=== PATIENT | female | born 1960 | race Caucasian/White ===

== ENCOUNTER 2016-11-12 20:17 | Emergency (ER) | payer OTHER ==
--- NOTE | 2016-11-12 21:17 | DIAGNOSTIC IMAGING REPORT ---
PROCEDURE: XR CHEST 2 VIEW INDICATION: CHEST PAIN TECHNIQUE: PA and lateral views. COMPARISON: None. FINDINGS: Allowing for overlying wires and electrodes, and suboptimal inspiration, lungs are clear. Heart and mediastinum are normal. Thorax is normal. IMPRESSION: 1. Allowing for suboptimal inspiration, negative chest.
--- NOTE | 2016-11-12 21:34 | ED NURSING NOTES ---
Clinical Report - Nurses [facility] [address] [place] [address] 11/12/2016 20:17 Patient: DONY GUAMAN TRIAGE Triage time 20:22. Acuity: LEVEL 3. Chief Complaint: CHEST PAIN and ("stabbing pain" and left arm "dull throbbing pain"). Alert. No acute distress. SEPSIS SCREEN: Sepsis Screen. Negative (no infection suspected/documented). CHOCO COMA SCORE: Choco Coma Scale: 15- eyes open spontaneously (4); best verbal response- oriented x 4 (5); best motor response- obeys commands (6). --20:36 Licha Hernandez R.N. 20:22 11/12/16. BP: 151/99. HR: 74. RR: 20. O2 saturation: 100%. Temp: 98.1 F. Pain level now 3/10. --20:36 Licha Hernandez R.N. Weight: 136 kg stated. Height/Length: 66 inches Per Patient. BMI: 48.4. --20:26 Licha Hernandez R.N. Medications PriLOSEC Oral, as needed. --20:28 Licha Hernandez R.N. The following entry was struck by Licha Hernandez R.N., 20:28 (11/12/16) Reason - other. <<STRICKEN ENTRY-- None. --20:28 Licha Hernandez R.N. --END STRIKE>>. Allergies None. --20:28 Licha Hernandez R.N. History Arrived by private vehicle. Historian: patient. Accompanied by spouse. Primary physician (Dr. Milan). This started today. Onset. (30 minutes ago). 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 (650mg PO 30 min. TINTER PHOTOGRAPH). PAST MEDICAL HX: Immunizations: up-to-date. SOCIAL HX: Never smoker. Occasional alcohol use. No drug use. ABUSE ASSESSMENT: No report of abuse. NUTRITIONAL RISK ASSESSMENT: The nutritional risk assessment revealed no deficiencies. FUNCTIONAL ASSESSMENT: Functional assessment: no impairments noted. LEARNING NEEDS ASSESSMENT: The learning needs assessment revealed no barriers. --20:36 Licha Hernandez R.N. PROBLEMS: Peptic Ulcer Disease. Abdominal Pain. Duodenal ulcer disease. --20:28 Licha Hernandez R.N. ADDITIONAL SURGERIES: Adenoidectomy. Cholecystectomy. Gastric Resection. Hysterectomy. Tonsillectomy. --20:29 Licha Hernandez R.N. Interventions ID band on patient. Ambulatory. --20:36 Licha Hernandez R.N. PHYSICAL ASSESSMENT Ambulatory to room. GENERAL / NEURO / PSYCH: Alert. Appears in no acute distress. HEENT: Mucous membranes are pink. RESPIRATORY: Respirations not labored. CVS: Capillary refill less than 2 seconds. GI / : Abdomen soft and nontender. SKIN: Skin is warm and dry. --20:31 Licha Hernandez R.N. NURSING PROGRESS NOTES 20:27. quality assurance monitor chassis, pulse oximeter and NIBP monitor placed on patient; monitor tech- Lead II; monitor alarms on. Patient gowned. Head of bed elevated. Two patient identifiers checked. Call light placed in reach. Side rails up x 2. Bed placed in lowest position. Brakes of bed on. Patient ready for evaluation- chart flagged. --20:31 Licha Hernandez R.N. EKG time: (2027). EKG was ordered, performed by a tech and shown to the ED physician. --20:31 Licha Hernandez R.N. 20:32 11/12/2016 Site #1 started via IV in the right antecubital space with an 20g angiocath, with aseptic technique and good blood return; one attempt. Blood drawn: rainbow set. Labeled in the presence of the patient and sent to the lab. Saline lock flushed with 10 mL saline (accessed by JOHN Clemens). --20:32 Licha Hernandez R.N. 21:08 11/12/2016 Toradol IVP 30 mg given over 1 minute(s) via site #1. Allergies verified and confirmed 5 rights. IV patency established. IV site checked: no pain, redness, or swelling. IV flushed thoroughly pre- and post-medication administration. --21:10 Licha Hernandez R.N. 21:10 11/12/2016 Ativan (LORazepam) IVP 0.5 mg given over 1 minute(s) via site #1. Allergies verified, confirmed 5 rights and sedative warning given to the patient. IV patency established. IV site checked: no pain, redness, or swelling. IV flushed thoroughly pre- and post-medication administration. --21:10 Licha Hernandez R.N. Patient transported to radiology by stretcher with tech. --21:10 Licha Hernandez R.N. 21:43 11/12/2016 Ativan IVP Response: no adverse reaction pain is improving. Symptoms have improved. --21:43 Licha Hernandez R.N. DISPOSITION / DISCHARGE 21:44 11/12/2016 Site #1 removed upon discharge. Catheter intact. Manual pressure and bandaid applied. --21:44 Licha Hernandez R.N. Condition at departure: stable. No learning barriers present. Discharge instructions provided and reviewed with the patient. Reviewed medication(s) side effects, precautions, dosing and course information. Prescription(s) given to the patient. Reviewed referral to family practice for followup. Patient verbalized understanding. Written instructions provided in Hong Konger. The patient was discharged home and accompanied by commission for the blind director. She left the Emergency Department ambulatory and via private vehicle. Tester Operator Helper driving. Medication list reviewed and validated. --21:44 Licha Hernandez R.N. 21:43 11/12/16. BP: 136/80. HR: 73. RR: 16. O2 saturation: 99%. Temp: 98.7 F. Pain level now 11/27. --21:44 Licha Hernandez R.N. Departure time: 2146. --21:51 Licha Hernandez R.N. Locked/Released at 11/12/2016 21:52 by Licha Hernandez R.N.
--- NOTE | 2016-11-12 21:34 | ED CLINICAL REPORT ---
Clinical Report - Physicians/Mid Levels [facility] [address] [place] [address] 11/12/2016 20:17 Patient: DONY GUAMAN Time Seen: 20:47 Nov 12 2016. Arrived- By private vehicle. Historian- patient. CPT: ER phys charges level 4 plus (#[id number]). EKG interpretation (#[id number]). HISTORY OF PRESENT ILLNESS Chief Complaint: CHEST DISCOMFORT. CHEST PAIN and ("stabbing pain" and left arm "dull throbbing pain"). This started just prior to arrival and is still present. Onset during light activity. At its maximum, severity described as moderate. When seen in the E.D., severity described as mild. Modifying factors- worsened by movement and cough. Relieved by rest. It is described as aching, sharp, "pain" and well localized and it is described as located in the central chest and left chest area. No nausea, vomiting, difficulty breathing or diaphoresis. Similar symptoms previously: None. Recent medical care: Not recently seen/assessed. REVIEW OF SYSTEMS No fever, chills, cough, pedal edema or calf pain. No fainting episodes, headache, abdominal pain, black stools or difficulty with urination. No skin rash or enlarged lymph nodes. All systems otherwise negative, except as recorded above. PAST HISTORY Peptic Ulcer Disease. Abdominal Pain. Duodenal ulcer disease. ADDITIONAL SURGERIES: Adenoidectomy. Cholecystectomy. Gastric Resection. Hysterectomy. Tonsillectomy. Medications: PriLOSEC Oral, as needed. Allergies: None. SOCIAL HISTORY Never smoker. Occasional alcohol use. ADDITIONAL NOTES The nursing notes have been reviewed. PHYSICAL EXAM Vital Signs: 11/12/2016 20:22 BP: 151/99. HR: 74. RR: 20. O2 saturation: 100%. Temp: 98.1 F. Appearance: Alert. Anxious. Patient in mild distress. Eyes: Pupils equal, round and reactive to light. Eyes normal inspection. ENT: Ears normal. Nose normal. Pharynx normal. Neck: Normal inspection. Neck supple. CVS: Normal heart rate and rhythm. Heart sounds normal. Pulses normal. No cardiac murmur. Respiratory: No respiratory distress. Chest pain reproducible with palpation of the costal cartilage and anterior chest wall, with movement of the trunk and left arm and with deep breathing. Breath sounds normal. Abdomen: Soft and nontender. Back: Normal external inspection. Skin: Skin warm. Normal skin color. No rash. Extremities: Extremities exhibit normal ROM. No lower extremity edema. Neuro: Oriented X 3. No motor deficit. No sensory deficit. LABS, X-RAYS, AND EKG EKG: Normal sinus rhythm. Normal P waves. Normal TASNEEM. Incomplete RBBB. Normal ST and T waves. Prior EKG unavailable. The study has been interpreted contemporaneously. The study has been independently viewed by me. The EKG appears to be a good tracing. Chest X-ray: Normal Chest X-Ray. Laboratory Tests: [id number]: (KRISTA: 11/12/2016 20:30) ( MsgRcvd 11/12/2016 21:23) Final results Test Result Flag Units (Reference) D-DIMER QUANTITATIVE 0.49 ug/mLFEU (0.27-0.52) The primary value of this quantitative assay relates toits negative predictive value (i.e. exclusion) of pulmonaryembolism/deep vein thrombosis/DIC.Elevated levels of d-dimer may also occur with:, age, cancer, inflammation, liver disease,post-op, infection, hematoma, coronary disease, peripheralarteriopathy, bleeding disorders and thrombolytic treatment.Results should be correlated with other clinical andradiological data.Testing Methodology: Latex Immunoassay Troponin-I: (KRISTA: 11/12/2016 20:30) ( MsgRcvd 11/12/2016 21:23) Final results Test Result Flag Units (Reference) TROPONIN I <0.05 L ng/mL (0.00-1.5) TROPONIN REFERENCE RANGE:<0.1 NEGATIVE0.1-1.5 INDETERMINANT>1.5 POSITIVE . PROGRESS AND PROCEDURES Course of Care: 21:28 11/12/16. the patient was very point tender and reproducible pain in the left chest wall and shoulder. Pain is musculoskeletal in nature. Screening d-dimer and troponin chest x-ray all negative. We'll discharge home with musculoskeletal pain instructions and follow-up. Patient/family counseled. Disposition: Discharged. Condition: stable. CLINICAL IMPRESSION Chest wall pain .12 lead EKG performed. INSTRUCTIONS Apply moist heat for 15-20 minutes three times a day for five days until better. No strenuous activity. Rest. Warnings: Further evaluation is necessary. GENERAL WARNINGS: Return or contact your physician immediately if your condition worsens or changes unexpectedly, if not improving as expected, or if other problems arise. Prescription Medications: Ibuprofen 600mg tablets: take 1 tablet orally every 8 hours as needed for pain. Dispense thirty (30). No refills. Ativan 0.5 mg: take 1-2 orally every 6 hours as needed. Dispense ten (10). No refill. Substitution is permissible. (for muscle spasm.) Follow-up: Follow up with your doctor in one week. Call for an appointment. Understanding of the discharge instructions verbalized by patient. (Electronically signed by Bruce Cesar MD 11/16/2016 1:25)
--- NOTE | 2016-11-12 21:34 | ED NURSING NOTES ---
Clinical Report - Nurses [facility] [address] [place] [place] [address] 11/12/2016 20:17 Patient: DONY GUAMAN TRIAGE Triage time 20:22. Acuity: LEVEL 3. Chief Complaint: CHEST PAIN and ("stabbing pain" and left arm "dull throbbing pain"). Alert. No acute distress. SEPSIS SCREEN: Sepsis Screen. Negative (no infection suspected/documented). CHOCO COMA SCORE: Choco Coma Scale: 15- eyes open spontaneously (4); best verbal response- oriented x 4 (5); best motor response- obeys commands (6). --20:36 Licha Hernandez R.N. 20:22 11/12/16. BP: 151/99. HR: 74. RR: 20. O2 saturation: 100%. Temp: 98.1 F. Pain level now 3/10. --20:36 Licha Hernandez R.N. Weight: 136 kg stated. Height/Length: 66 inches Per Patient. BMI: 48.4. --20:26 Licha Hernandez R.N. Medications PriLOSEC Oral, as needed. --20:28 Licha Hernandez R.N. The following entry was struck by Licha Hernandez R.N., 20:28 (11/12/16) Reason - other. <<STRICKEN ENTRY-- None. --20:28 Licha Hernandez R.N. --END STRIKE>>. Allergies None. --20:28 Licha Hernandez R.N. History Arrived by private vehicle. Historian: patient. Accompanied by spouse. Primary physician (Dr. Milan). This started today. Onset. (30 minutes ago). 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 (650mg PO 30 min. CERTIFIED SURGICAL ASSISTANT). PAST MEDICAL HX: Immunizations: up-to-date. SOCIAL HX: Never smoker. Occasional alcohol use. No drug use. ABUSE ASSESSMENT: No report of abuse. NUTRITIONAL RISK ASSESSMENT: The nutritional risk assessment revealed no deficiencies. FUNCTIONAL ASSESSMENT: Functional assessment: no impairments noted. LEARNING NEEDS ASSESSMENT: The learning needs assessment revealed no barriers. --20:36 Licha Hernandez R.N. PROBLEMS: Peptic Ulcer Disease. Abdominal Pain. Duodenal ulcer disease. --20:28 Licha Hernandez R.N. ADDITIONAL SURGERIES: Adenoidectomy. Cholecystectomy. Gastric Resection. Hysterectomy. Tonsillectomy. --20:29 Licha Hernandez R.N. Interventions ID band on patient. Ambulatory. --20:36 Licha Hernandez R.N. PHYSICAL ASSESSMENT Ambulatory to room. GENERAL / NEURO / PSYCH: Alert. Appears in no acute distress. HEENT: Mucous membranes are pink. RESPIRATORY: Respirations not labored. CVS: Capillary refill less than 2 seconds. GI / : Abdomen soft and nontender. SKIN: Skin is warm and dry. --20:31 Licha Hernandez R.N. NURSING PROGRESS NOTES 20:27. conveyor monitor, pulse oximeter and NIBP monitor placed on patient; traffic monitor specialist- Lead II; monitor alarms on. Patient gowned. Head of bed elevated. Two patient identifiers checked. Call light placed in reach. Side rails up x 2. Bed placed in lowest position. Brakes of bed on. Patient ready for evaluation- chart flagged. --20:31 Licha Hernandez R.N. EKG time: (2027). EKG was ordered, performed by a tech and shown to the ED physician. --20:31 Licha Hernandez R.N. 20:32 11/12/2016 Site #1 started via IV in the right antecubital space with an 20g angiocath, with aseptic technique and good blood return; one attempt. Blood drawn: rainbow set. Labeled in the presence of the patient and sent to the lab. Saline lock flushed with 10 mL saline (accessed by JOHN Clemens). --20:32 Licha Hernandez R.N. 21:08 11/12/2016 Toradol IVP 30 mg given over 1 minute(s) via site #1. Allergies verified and confirmed 5 rights. IV patency established. IV site checked: no pain, redness, or swelling. IV flushed thoroughly pre- and post-medication administration. --21:10 Licha Hernandez R.N. 21:10 11/12/2016 Ativan (LORazepam) IVP 0.5 mg given over 1 minute(s) via site #1. Allergies verified, confirmed 5 rights and sedative warning given to the patient. IV patency established. IV site checked: no pain, redness, or swelling. IV flushed thoroughly pre- and post-medication administration. --21:10 Licha Hernandez R.N. Patient transported to radiology by stretcher with tech. --21:10 Licha Hernandez R.N. 21:43 11/12/2016 Ativan IVP Response: no adverse reaction pain is improving. Symptoms have improved. --21:43 Licha Hernandez R.N. DISPOSITION / DISCHARGE 21:44 11/12/2016 Site #1 removed upon discharge. Catheter intact. Manual pressure and bandaid applied. --21:44 Licha Hernandez R.N. Condition at departure: stable. No learning barriers present. Discharge instructions provided and reviewed with the patient. Reviewed medication(s) side effects, precautions, dosing and course information. Prescription(s) given to the patient. Reviewed referral to family practice for followup. Patient verbalized understanding. Written instructions provided in [place]. The patient was discharged home and accompanied by account auditor. She left the Emergency Department ambulatory and via private vehicle. Remote Control Mirror Installer driving. Medication list reviewed and validated. --21:44 Licha Hernandez R.N. 21:43 11/12/16. BP: 136/80. HR: 73. RR: 16. O2 saturation: 99%. Temp: 98.7 F. Pain level now 11/27. --21:44 Licha Hernandez R.N. Departure time: 2146. --21:51 Licha Hernandez R.N. Locked/Released at 11/12/2016 21:52 by Licha Hernandez R.N.
--- NOTE | 2016-11-12 21:34 | ED ORDER SUMMARY ---
..... Patient: DONY GUAMAN OrderSheet [facility] VisitID: [id number] [address] [place] [address] 56y, F Registration Date/Time: 11/12/2016 ORDER SHEET Weight: 136.0 kg (stated) Allergies: None GENERAL ORDERS: Chest 2V Urgent (20:59 11/12/2016 Morro CALDERON) (Ack 21:02 TBergley) (21:16 MCampbell) D-Dimer Urgent (21:00 11/12/2016 Morro CALDERON) (Ack 21:02 TBergley) (21:10 SReitz R.N.) Troponin-I Urgent (:00 11/12/2016 Morro CALDERON) (Ack 21:02 TBergley) (21:10 Simona R.N.) MEDICATION ORDERS: IV FLUIDS: Toradol IV 30 mg (NOW) (21:00 11/12/2016 Morro CALDERON) (Ack 21:01 Simona R.N.) (21:10 Simona R.N.) Ativan IV 0.5 mg (NOW) (21:00 11/12/2016 Morro CALDERON) (Ack 21:01 Simona R.N.) (21:10 Simona R.N.) IV Saline Lock (21:00 11/12/2016 Morro CALDERON) (Ack 21:01 Simona R.N.) ORDER SHEET NOTES: [Electronically signed by Licha Hernandez R.N. (21:52 11/12/2016)] [Electronically signed by Bruce Cesar MD (01:25 11/16/2016)] [Electronically locked/signed by Licha Hernandez R.N. (21:52 11/12/2016)]
--- NOTE | 2016-11-12 21:34 | ED ORDER SUMMARY ---
..... Patient: DONY GUAMAN OrderSheet [facility] VisitID: [id number] [address] [place] [address] 56y, F Registration Date/Time: 11/12/2016 ORDER SHEET Weight: 136.0 kg (stated) Allergies: None GENERAL ORDERS: Chest 2V Urgent (20:59 11/12/2016 Morro CALDERON) (Ack 21:02 TBergley) (21:16 MCampbell) D-Dimer Urgent (21:00 11/12/2016 Morro CALDERON) (Ack 21:02 TBergley) (21:10 SReitz R.N.) Troponin-I Urgent (:00 11/12/2016 Morro CALDERON) (Ack 21:02 TBergley) (21:10 Simona R.N.) MEDICATION ORDERS: IV FLUIDS: Toradol IV 30 mg (NOW) (21:00 11/12/2016 Morro CALDERON) (Ack 21:01 Simona R.N.) (21:10 Simona R.N.) Ativan IV 0.5 mg (NOW) (21:00 11/12/2016 Morro CALDERON) (Ack 21:01 Simona R.N.) (21:10 Simona R.N.) IV Saline Lock (21:00 11/12/2016 Morro CALDERON) (Ack 21:01 Simona R.N.) ORDER SHEET NOTES: [Electronically signed by Licha Hernandez R.N. (21:52 11/12/2016)] [Electronically signed by Bruce Cesar MD (01:25 11/16/2016)] [Electronically locked/signed by Licha Hernandez R.N. (21:52 11/12/2016)]
--- NOTE | 2016-11-12 21:34 | ED CLINICAL REPORT ---
Clinical Report - Physicians/Mid Levels [facility] [address] [place] [address] 11/12/2016 20:17 Patient: DONY GUAMAN Time Seen: 20:47 Nov 12 2016. Arrived- By private vehicle. Historian- patient. CPT: ER phys charges level 4 plus (#[id number]). EKG interpretation (#[id number]). HISTORY OF PRESENT ILLNESS Chief Complaint: CHEST DISCOMFORT. CHEST PAIN and ("stabbing pain" and left arm "dull throbbing pain"). This started just prior to arrival and is still present. Onset during light activity. At its maximum, severity described as moderate. When seen in the E.D., severity described as mild. Modifying factors- worsened by movement and cough. Relieved by rest. It is described as aching, sharp, "pain" and well localized and it is described as located in the central chest and left chest area. No nausea, vomiting, difficulty breathing or diaphoresis. Similar symptoms previously: None. Recent medical care: Not recently seen/assessed. REVIEW OF SYSTEMS No fever, chills, cough, pedal edema or calf pain. No fainting episodes, headache, abdominal pain, black stools or difficulty with urination. No skin rash or enlarged lymph nodes. All systems otherwise negative, except as recorded above. PAST HISTORY Peptic Ulcer Disease. Abdominal Pain. Duodenal ulcer disease. ADDITIONAL SURGERIES: Adenoidectomy. Cholecystectomy. Gastric Resection. Hysterectomy. Tonsillectomy. Medications: PriLOSEC Oral, as needed. Allergies: None. SOCIAL HISTORY Never smoker. Occasional alcohol use. ADDITIONAL NOTES The nursing notes have been reviewed. PHYSICAL EXAM Vital Signs: 11/12/2016 20:22 BP: 151/99. HR: 74. RR: 20. O2 saturation: 100%. Temp: 98.1 F. Appearance: Alert. Anxious. Patient in mild distress. Eyes: Pupils equal, round and reactive to light. Eyes normal inspection. ENT: Ears normal. Nose normal. Pharynx normal. Neck: Normal inspection. Neck supple. CVS: Normal heart rate and rhythm. Heart sounds normal. Pulses normal. No cardiac murmur. Respiratory: No respiratory distress. Chest pain reproducible with palpation of the costal cartilage and anterior chest wall, with movement of the trunk and left arm and with deep breathing. Breath sounds normal. Abdomen: Soft and nontender. Back: Normal external inspection. Skin: Skin warm. Normal skin color. No rash. Extremities: Extremities exhibit normal ROM. No lower extremity edema. Neuro: Oriented X 3. No motor deficit. No sensory deficit. LABS, X-RAYS, AND EKG EKG: Normal sinus rhythm. Normal P waves. Normal TASNEEM. Incomplete RBBB. Normal ST and T waves. Prior EKG unavailable. The study has been interpreted contemporaneously. The study has been independently viewed by me. The EKG appears to be a good tracing. Chest X-ray: Normal Chest X-Ray. Laboratory Tests: [id number]: (KRISTA: 11/12/2016 20:30) ( MsgRcvd 11/12/2016 21:23) Final results Test Result Flag Units (Reference) D-DIMER QUANTITATIVE 0.49 ug/mLFEU (0.27-0.52) The primary value of this quantitative assay relates toits negative predictive value (i.e. exclusion) of pulmonaryembolism/deep vein thrombosis/DIC.Elevated levels of d-dimer may also occur with:, age, cancer, inflammation, liver disease,post-op, infection, hematoma, coronary disease, peripheralarteriopathy, bleeding disorders and thrombolytic treatment.Results should be correlated with other clinical andradiological data.Testing Methodology: Latex Immunoassay Troponin-I: (KRISTA: 11/12/2016 20:30) ( MsgRcvd 11/12/2016 21:23) Final results Test Result Flag Units (Reference) TROPONIN I <0.05 L ng/mL (0.00-1.5) TROPONIN REFERENCE RANGE:<0.1 NEGATIVE0.1-1.5 INDETERMINANT>1.5 POSITIVE . PROGRESS AND PROCEDURES Course of Care: 21:28 11/12/16. the patient was very point tender and reproducible pain in the left chest wall and shoulder. Pain is musculoskeletal in nature. Screening d-dimer and troponin chest x-ray all negative. We'll discharge home with musculoskeletal pain instructions and follow-up. Patient/family counseled. Disposition: Discharged. Condition: stable. CLINICAL IMPRESSION Chest wall pain .12 lead EKG performed. INSTRUCTIONS Apply moist heat for 15-20 minutes three times a day for five days until better. No strenuous activity. Rest. Warnings: Further evaluation is necessary. GENERAL WARNINGS: Return or contact your physician immediately if your condition worsens or changes unexpectedly, if not improving as expected, or if other problems arise. Prescription Medications: Ibuprofen 600mg tablets: take 1 tablet orally every 8 hours as needed for pain. Dispense thirty (30). No refills. Ativan 0.5 mg: take 1-2 orally every 6 hours as needed. Dispense ten (10). No refill. Substitution is permissible. (for muscle spasm.) Follow-up: Follow up with your doctor in one week. Call for an appointment. Understanding of the discharge instructions verbalized by patient. (Electronically signed by Bruce Cesar MD 11/16/2016 1:25)
--- NOTE | 2016-11-16 01:25 | ED MED RECONCILIATION SUMMARY ---
Patient: DONY GUAMAN Medication Reconciliation Report [facility] VisitID: [id number] [address] [place] [address] 56y, F Registration Date/Time: 11/12/2016 Weight: 136.0 kg Height/Length: 66 in. BMI: 48.4 ALLERGIES: None The patient's Home Medications are listed below: THE FOLLOWING MEDICATIONS NEED TO BE RECONCILED: PriLOSEC Oral The source(s) of the original Home Medication information: Not obtained. The following Medications were given to the patient in the Emergency Department: Toradol [IVP] IVP 30 mg, administered: 11/12/2016 9:08:00 PM Ativan [IVP] IVP 0.5 mg, administered: 11/12/2016 9:10:00 PM The following Medications were prescribed to the patient: Ibuprofen 600mg tablets: take 1 tablet orally every 8 hours as needed for pain. Dispense thirty (30). No refills. -- Bruce Cesar MD Ativan 0.5 mg: take 1-2 orally every 6 hours as needed. Dispense ten (10). No refill. Substitution is permissible.(for muscle spasm.) -- Bruce Cesar MD
--- NOTE | 2016-11-16 01:25 | ED DISCHARGE INSTRUCTIONS ---
Patient: DONY GUAMAN General Instructions [facility] VisitID: [id number] [place] [address] 56y, F Registration Date/Time: 11/12/2016 Chest wall pain .12 lead EKG performed. INSTRUCTIONS Apply moist heat for 15-20 minutes three times a day for five days until better. No strenuous activity. Rest. Warnings: Further evaluation is necessary. GENERAL WARNINGS: Return or contact your physician immediately if your condition worsens or changes unexpectedly, if not improving as expected, or if other problems arise. Prescription Medications: Ibuprofen 600mg tablets: take 1 tablet orally every 8 hours as needed for pain. Dispense thirty (30). No refills. Ativan 0.5 mg: take 1-2 orally every 6 hours as needed. Dispense ten (10). No refill. Substitution is permissible. (for muscle spasm.) Follow-up: Follow up with your doctor in one week. Call for an appointment. Understanding of the discharge instructions verbalized by patient. ADDITIONAL INFORMATION Chest Wall Pain: Costochondritis The chest pain that you have had today is caused by Costochondritis. This condition is due to an inflammation of the cartilage joining the ribs to the breastbone. It is not caused by heart or lung problems. Although the exact cause for costochondritis is not known, it often occurs during times of emotional stress. It can be painful, but it is not dangerous. It usually disappears within one to two weeks, but may recur. Rarely, a more serious condition may cause symptoms similar to costochondritis; therefore, watch for the warning signs listed below. Home Care: If you feel that emotional stress is a cause of your condition, try to identify sources of that stress. It may not be obvious! Learn ways to deal with the stress in your life such as regular exercise, muscle relaxation, meditation, or simply taking time out for yourself. For more information about this, consult your doctor or go to a local bookstore and review books and tapes available on the subject of stress reduction. You may use acetaminophen (Tylenol) or ibuprofen (Motrin, Advil) to control pain, unless another pain medicine was prescribed. [ NOTE: If you have liver disease or ever had a stomach ulcer, talk with your doctor before using these medicines.] The use of heat (hot wet compress or heating pad) with or without local analgesic creams (Deep Heat Rub, Douglas Hurtado) will be helpful to reduce pain. Follow Up with your doctor as directed or sooner if you do not start to improve within the next two days. Get Prompt Medical Attention if any of the following occur: A change in the type of pain: if it feels different, becomes more severe, lasts longer, or spreads into your shoulder, arm, neck, jaw or back Shortness of breath or increased pain with breathing Weakness, dizziness, or fainting Cough with dark colored sputum (phlegm) or blood Abdominal pain Dark red or black stools Fever of 100.4F (38C) or higher, or as directed by your healthcare provider Lorazepam Oral tablet What is this medicine? LORAZEPAM (aurea A ze diego) is a benzodiazepine. It is used to treat anxiety. How should I use this medicine? Take this medicine by mouth with a glass of water. Follow the directions on the prescription label. If it upsets your stomach, take it with food or milk. Take your medicine at regular intervals. Do not take it more often than directed. Do not stop taking except on the advice of your doctor or health chronic care nurse. Talk to your complex care nurse practitioner regarding the use of this medicine in children. Special care may be needed. What side effects may I notice from receiving this medicine? Side effects that you should report to your doctor or health chronic care nurse as soon as possible: changes in vision confusion depression mood changes, excitability or aggressive behavior movement difficulty, staggering or jerky movements muscle cramps restlessness weakness or tiredness Side effects that usually do not require medical attention (report to your doctor or health chronic care nurse if they continue or are bothersome): constipation or diarrhea difficulty sleeping, nightmares dizziness, drowsiness headache nausea, vomiting What may interact with this medicine? barbiturate medicines for inducing sleep or treating seizures, like phenobarbital clozapine medicines for depression, mental problems or psychiatric disturbances medicines for sleep phenytoin probenecid theophylline valproic acid What if I miss a dose? If you miss a dose, take it as soon as you can. If it is almost time for your next dose, take only that dose. Do not take double or extra doses. Where should I keep my medicine? Keep out of the reach of children. This medicine can be abused. Keep your medicine in a safe place to protect it from theft. Do not share this medicine with anyone. Selling or giving away this medicine is dangerous and against the law. Store at room temperature between 20 and 25 degrees C (68 and 77 degrees F). Protect from light. Keep container tightly closed. Throw away any unused medicine after the expiration date. What should I tell my health care provider before I take this medicine? They need to know if you have any of these conditions: alcohol or drug abuse problem bipolar disorder, depression, psychosis or other mental health condition glaucoma kidney or liver disease lung disease or breathing difficulties myasthenia gravis Parkinson's disease seizures or a history of seizures suicidal thoughts an unusual or allergic reaction to lorazepam, other benzodiazepines, foods, dyes, or preservatives or trying to get breast-feeding What should I watch for while using this medicine? Visit your doctor or health chronic care nurse for regular checks on your progress. Your body may become dependent on this medicine, ask your doctor or health chronic care nurse if you still need to take it. However, if you have been taking this medicine regularly for some time, do not suddenly stop taking it. You must gradually reduce the dose or you may get severe side effects. Ask your doctor or health chronic care nurse for advice before increasing or decreasing the dose. Even after you stop taking this medicine it can still affect your body for several days. You may get drowsy or dizzy. Do not drive, use machinery, or do anything that needs mental alertness until you know how this medicine affects you. To reduce the risk of dizzy and fainting spells, do not stand or sit up quickly, especially if you are an older patient. Alcohol may increase dizziness and drowsiness. Avoid alcoholic drinks. Do not treat yourself for coughs, colds or allergies without asking your doctor or health chronic care nurse for advice. Some ingredients can increase possible side effects. You have been given the following additional information: Chest Wall Pain, Costochondritis Lorazepam Oral tablet No strenuous activity. Rest. (Electronically signed by Bruce Cesar MD 11/16/2016 1:25)
--- NOTE | 2016-11-16 01:25 | ED MED RECONCILIATION SUMMARY ---
Patient: DONY GUAMAN Medication Reconciliation Report [facility] VisitID: [id number] [address] [place] [address] 56y, F Registration Date/Time: 11/12/2016 Weight: 136.0 kg Height/Length: 66 in. BMI: 48.4 ALLERGIES: None The patient's Home Medications are listed below: THE FOLLOWING MEDICATIONS NEED TO BE RECONCILED: PriLOSEC Oral The source(s) of the original Home Medication information: Not obtained. The following Medications were given to the patient in the Emergency Department: Toradol [IVP] IVP 30 mg, administered: 11/12/2016 9:08:00 PM Ativan [IVP] IVP 0.5 mg, administered: 11/12/2016 9:10:00 PM The following Medications were prescribed to the patient: Ibuprofen 600mg tablets: take 1 tablet orally every 8 hours as needed for pain. Dispense thirty (30). No refills. -- Bruce Cesar MD Ativan 0.5 mg: take 1-2 orally every 6 hours as needed. Dispense ten (10). No refill. Substitution is permissible.(for muscle spasm.) -- Bruce Cesar MD
--- NOTE | 2016-11-16 01:25 | ED MAR SUMMARY ---
..... Medication Administration Record [facility] [address] [place] [address] Patient: DONY GUAMAN Visit ID: [id number] 56y, F Weight: 136.0 kg Height/Length: 66 in BMI: 48.4 ALLERGIES: None Given 21:08 11/12/2016 Licha Hernandez RShaziaNShazia Medication Administered: TORADOL [IVP], Dose: 30 mg IVP over 1 minute(s), Site: #1 right AC. Medication Ordered: Toradol IV 30 mg (NOW). Given 21:10 11/12/2016 Licha Hernandez, RShaziaNShazai Medication Administered: ATIVAN [IVP] (LORAZEPAM), Dose: 0.5 mg IVP over 1 minute(s), Site: #1 right AC. Medication Ordered: Ativan IV 0.5 mg (NOW).
--- NOTE | 2016-11-16 01:25 | ED MAR SUMMARY ---
..... Medication Administration Record [facility] [address] [place] [address] Patient: DNOY GUAMAN Visit ID: [id number] 56y, F Weight: 136.0 kg Height/Length: 66 in BMI: 48.4 ALLERGIES: None Given 21:08 11/12/2016 Licha Hernandez RShaziaNShazia Medication Administered: TORADOL [IVP], Dose: 30 mg IVP over 1 minute(s), Site: #1 right AC. Medication Ordered: Toradol IV 30 mg (NOW). Given 21:10 11/12/2016 Licha Hernandez, RShaziaNShazia Medication Administered: ATIVAN [IVP] (LORAZEPAM), Dose: 0.5 mg IVP over 1 minute(s), Site: #1 right AC. Medication Ordered: Ativan IV 0.5 mg (NOW).
--- NOTE | 2016-11-16 01:25 | ED DISCHARGE INSTRUCTIONS ---
Patient: DONY GUAMAN General Instructions [facility] VisitID: [id number] [place] [address] 56y, F Registration Date/Time: 11/12/2016 Chest wall pain .12 lead EKG performed. INSTRUCTIONS Apply moist heat for 15-20 minutes three times a day for five days until better. No strenuous activity. Rest. Warnings: Further evaluation is necessary. GENERAL WARNINGS: Return or contact your physician immediately if your condition worsens or changes unexpectedly, if not improving as expected, or if other problems arise. Prescription Medications: Ibuprofen 600mg tablets: take 1 tablet orally every 8 hours as needed for pain. Dispense thirty (30). No refills. Ativan 0.5 mg: take 1-2 orally every 6 hours as needed. Dispense ten (10). No refill. Substitution is permissible. (for muscle spasm.) Follow-up: Follow up with your doctor in one week. Call for an appointment. Understanding of the discharge instructions verbalized by patient. ADDITIONAL INFORMATION Chest Wall Pain: Costochondritis The chest pain that you have had today is caused by Costochondritis. This condition is due to an inflammation of the cartilage joining the ribs to the breastbone. It is not caused by heart or lung problems. Although the exact cause for costochondritis is not known, it often occurs during times of emotional stress. It can be painful, but it is not dangerous. It usually disappears within one to two weeks, but may recur. Rarely, a more serious condition may cause symptoms similar to costochondritis; therefore, watch for the warning signs listed below. Home Care: If you feel that emotional stress is a cause of your condition, try to identify sources of that stress. It may not be obvious! Learn ways to deal with the stress in your life such as regular exercise, muscle relaxation, meditation, or simply taking time out for yourself. For more information about this, consult your doctor or go to a local bookstore and review books and tapes available on the subject of stress reduction. You may use acetaminophen (Tylenol) or ibuprofen (Motrin, Advil) to control pain, unless another pain medicine was prescribed. [ NOTE: If you have liver disease or ever had a stomach ulcer, talk with your doctor before using these medicines.] The use of heat (hot wet compress or heating pad) with or without local analgesic creams (Deep Heat Rub, Douglas Hurtado) will be helpful to reduce pain. Follow Up with your doctor as directed or sooner if you do not start to improve within the next two days. Get Prompt Medical Attention if any of the following occur: A change in the type of pain: if it feels different, becomes more severe, lasts longer, or spreads into your shoulder, arm, neck, jaw or back Shortness of breath or increased pain with breathing Weakness, dizziness, or fainting Cough with dark colored sputum (phlegm) or blood Abdominal pain Dark red or black stools Fever of 100.4F (38C) or higher, or as directed by your healthcare provider Lorazepam Oral tablet What is this medicine? LORAZEPAM (aurea A ze diego) is a benzodiazepine. It is used to treat anxiety. How should I use this medicine? Take this medicine by mouth with a glass of water. Follow the directions on the prescription label. If it upsets your stomach, take it with food or milk. Take your medicine at regular intervals. Do not take it more often than directed. Do not stop taking except on the advice of your doctor or health acute care occupational therapist. Talk to your photograph enlarger regarding the use of this medicine in children. Special care may be needed. What side effects may I notice from receiving this medicine? Side effects that you should report to your doctor or health acute care occupational therapist as soon as possible: changes in vision confusion depression mood changes, excitability or aggressive behavior movement difficulty, staggering or jerky movements muscle cramps restlessness weakness or tiredness Side effects that usually do not require medical attention (report to your doctor or health acute care occupational therapist if they continue or are bothersome): constipation or diarrhea difficulty sleeping, nightmares dizziness, drowsiness headache nausea, vomiting What may interact with this medicine? barbiturate medicines for inducing sleep or treating seizures, like phenobarbital clozapine medicines for depression, mental problems or psychiatric disturbances medicines for sleep phenytoin probenecid theophylline valproic acid What if I miss a dose? If you miss a dose, take it as soon as you can. If it is almost time for your next dose, take only that dose. Do not take double or extra doses. Where should I keep my medicine? Keep out of the reach of children. This medicine can be abused. Keep your medicine in a safe place to protect it from theft. Do not share this medicine with anyone. Selling or giving away this medicine is dangerous and against the law. Store at room temperature between 20 and 25 degrees C (68 and 77 degrees F). Protect from light. Keep container tightly closed. Throw away any unused medicine after the expiration date. What should I tell my health care provider before I take this medicine? They need to know if you have any of these conditions: alcohol or drug abuse problem bipolar disorder, depression, psychosis or other mental health condition glaucoma kidney or liver disease lung disease or breathing difficulties myasthenia gravis Parkinson's disease seizures or a history of seizures suicidal thoughts an unusual or allergic reaction to lorazepam, other benzodiazepines, foods, dyes, or preservatives or trying to get breast-feeding What should I watch for while using this medicine? Visit your doctor or health acute care occupational therapist for regular checks on your progress. Your body may become dependent on this medicine, ask your doctor or health acute care occupational therapist if you still need to take it. However, if you have been taking this medicine regularly for some time, do not suddenly stop taking it. You must gradually reduce the dose or you may get severe side effects. Ask your doctor or health acute care occupational therapist for advice before increasing or decreasing the dose. Even after you stop taking this medicine it can still affect your body for several days. You may get drowsy or dizzy. Do not drive, use machinery, or do anything that needs mental alertness until you know how this medicine affects you. To reduce the risk of dizzy and fainting spells, do not stand or sit up quickly, especially if you are an older patient. Alcohol may increase dizziness and drowsiness. Avoid alcoholic drinks. Do not treat yourself for coughs, colds or allergies without asking your doctor or health acute care occupational therapist for advice. Some ingredients can increase possible side effects. You have been given the following additional information: Chest Wall Pain, Costochondritis Lorazepam Oral tablet No strenuous activity. Rest. (Electronically signed by Bruce Cesar MD 11/16/2016 1:25)
== END 2016-11-12 21:47 | disposition home or self-care (01) ==
LOC: ED SRH 20:17
DX: R07.89 Other chest pain (principal); Z87.11 Personal history of peptic ulcer disease
CPT/HCPCS: 90616; 91556